=== PATIENT | female | born 1935 | race Caucasian/White ===

== ENCOUNTER 2022-03-28 13:33 | Observation (INO) ==
[2022-03-28 16:24] LABS: Bacteria,Urine Few per hpf (None-Few); Bilirubin,Urine Negative (Negative); Blood,Urine Negative (Negative); Clarity,Urine Turbid (Clear); Color,Urine Yellow (Yellow); Glucose,Urine (UA) Normal (Normal); Hemoglobin 13.2 g/dL (11.5-15.4); Hyaline Casts,Urine Many per lpf (None Seen); Ketones,Urine Negative (Negative); Leukocyte Esterase,Urine Large (Negative); Mucus,Urine Few per lpf (None-Few); Nitrite,Urine Negative (Negative); PH,Urine 5.5 pH Units (5.0-8.0); Protein,Urine Trace mg/dL (Neg-Trace); Renal Epithelial Cells,Urine Few per hpf (None-Few); Specific Gravity,Urine 1.015 (1.010-1.025); Squamous Epithelial Cell,Urine Moderate per hpf (None-Few); Transitional Epi Cells,Urine Few per hpf (None-Few); Urobilinogen,Urine Normal (Normal); WBC,Urine 15-30 per hpf (0-3)
[2022-03-28 16:26] LABS: Basophils % 0.5 %; Eosinophils % 0.5 %; Hematocrit 41.6 % (35.3-44.9); Immature Platelets 5.5 % (1.1-6.1); Lymphocytes # 2.7 K/mcL (0.6-4.6); Lymphocytes % 33.4 %; Mean Corpuscular HGB Conc 31.7 g/dL (31.6-35.5); Mean Corpuscular Hemoglobin 26.9 pg (28.0-33.3); Mean Corpuscular Volume 84.7 fL (83.0-100.0); Mean Platelet Volume 10.6 fL (9.4-12.4); Monocytes % 12.4 %; Neutrophils # 4.2 K/mcL (1.6-8.9); Red Blood Count 4.91 M/mcL (3.82-4.97); Red Cell Distribution Width 15.3 % (11.5-14.5); Segmented Neutrophils % 52.2 %
[2022-03-28 16:27] LABS: Platelet Count 95 K/mcL (140-400)
[2022-03-28] MEDS ORDERED: Iopamidol - 370 500 ML MLS IVP ONE (16:38)
[2022-03-28 16:42] LABS: INR 1.9; Prothrombin Time 21.6 Seconds (9.4-12.1)
[2022-03-28 16:49] LABS: Albumin 3.9 g/dL (3.5-5.7); Albumin/Globulin Ratio 1.3 (1.1-2.2); Bilirubin,Total 1.5 mg/dL (0.3-1.0); Calcium 9.1 mg/dL (8.6-10.3); Globulin 2.9 g/dL (2.4-3.5); Potassium 4.1 mEq/L (3.5-5.1); Total Protein 6.8 g/dL (6.4-8.9); Troponin I 0.03 ng/mL (< 0.04)
[2022-03-28 16:56] LABS: Thyroid Stimulating Hormone 2.729 mcIU/mL (0.340-5.600)
[2022-03-28 17:05] LABS: Bilirubin,Direct 0.4 mg/dL (0.0-0.2); Bilirubin,Indirect 1.1 mg/dL (0.0-1.0)
[2022-03-28] MEDS ORDERED: cefTRIAXone 1,000 MG in 0.9 % Sodium Chloride Mini Bag 100 ML IVPB ONE (18:29)
[2022-03-28] MEDS ORDERED: Naloxone 0.4 MG/ML INJ IVP PRN (20:14)
[2022-03-28] MEDS ORDERED: Ondansetron ODT 4 MG TAB.RAPDIS SL PRN (20:14)
[2022-03-28] MEDS ORDERED: Melatonin 3 MG TABLET PO PRN (20:14)
[2022-03-28] MEDS: Ringers Solution, Lactated 1,000 ML IVC SCH (22:14)
[2022-03-29 01:27] LABS: Hemoglobin 12.8 g/dL (11.5-15.4); Red Cell Distribution Width 15.4 % (11.5-14.5)
[2022-03-29 01:29] LABS: Basophils # 0.1 K/mcL (0.0-0.2); Basophils % 0.7 %; Eosinophils # 0.1 K/mcL (0.0-0.6); Eosinophils % 1.9 %; Hematocrit 40.2 % (35.3-44.9); Immature Granulocytes % 1.9 % (0-4); Immature Platelets 5.4 % (1.1-6.1); Lymphocytes # 1.5 K/mcL (0.6-4.6); Lymphocytes % 21.6 %; Mean Corpuscular HGB Conc 31.8 g/dL (31.6-35.5); Mean Corpuscular Hemoglobin 26.8 pg (28.0-33.3); Mean Corpuscular Volume 84.3 fL (83.0-100.0); Mean Platelet Volume 10.5 fL (9.4-12.4); Monocytes # 0.6 K/mcL (0.0-1.3); Monocytes % 8.5 %; Red Blood Count 4.77 M/mcL (3.82-4.97); Segmented Neutrophils % 65.4 %; White Blood Count 6.8 K/mcL (4.3-11.1)
[2022-03-29 01:33] LABS: Neutrophils # 4.5 K/mcL (1.6-8.9); Platelet Count 91 K/mcL (140-400)
[2022-03-29 01:36] LABS: INR 1.9; Prothrombin Time 21.6 Seconds (9.4-12.1)
[2022-03-29] MEDS: Acetaminophen 325 MG TABLET PO PRN ×2 (01:37→20:04)
[2022-03-29 01:39] LABS: Activated Partial Thrombo Time 40.2 Seconds (26.0-36.0)
[2022-03-29 01:47] LABS: Albumin 3.6 g/dL (3.5-5.7); Albumin/Globulin Ratio 1.3 (1.1-2.2); Calcium 8.9 mg/dL (8.6-10.3); Globulin 2.7 g/dL (2.4-3.5); Magnesium 1.7 mg/dL (1.6-2.6); Phosphorous 2.1 mg/dL (2.7-4.5); Total Protein 6.3 g/dL (6.4-8.9)
[2022-03-29 04:51] LABS: Hepatitis B Surface Antigen Nonreactive (Nonreactive)
[2022-03-29 05:20] LABS: Hepatitis A Antibody IgM Nonreactive (Nonreactive)
[2022-03-29 05:21] LABS: Hepatitis B Core IgM Nonreactive (Nonreactive)
[2022-03-29 05:22] LABS: Hepatitis C Virus Antibody Nonreactive (Nonreactive)
[2022-03-29] MEDS: Cholecalciferol (D-3) 1,000 UNIT (25MCG) TABLET PO SCH (09:38)
[2022-03-29] MEDS: Lactobacillus 1 EACH CAP.SPRINK PO SCH ×2 (09:38→20:05)
[2022-03-29] MEDS: lisinopriL 20 MG TABLET PO SCH (09:39)
[2022-03-29] MEDS: cefTRIAXone 1,000 MG in Water for inj. (sterile) 10 ML IVP SCH (09:41)
[2022-03-29] MEDS: (Mirabegron [Myrbetriq] 25 MG PO SCH (09:42)
[2022-03-29] MEDS: Ringers Solution, Lactated 1,000 ML IVC SCH (14:24)
[2022-03-29] MEDS: Latanoprost 2.5 ML BOTTLE BOTH EYES SCH (20:04)
[2022-03-30 01:54] LABS: Albumin 3.1 g/dL (3.5-5.7); Albumin/Globulin Ratio 1.4 (1.1-2.2); Bilirubin,Total 0.8 mg/dL (0.3-1.0); Calcium 8.8 mg/dL (8.6-10.3); Globulin 2.2 g/dL (2.4-3.5); Phosphorous 3.2 mg/dL (2.7-4.5); Potassium 3.9 mEq/L (3.5-5.1); Total Protein 5.3 g/dL (6.4-8.9)
[2022-03-30] MEDS: Cholecalciferol (D-3) 1,000 UNIT (25MCG) TABLET PO SCH (08:48)
[2022-03-30] MEDS: cefTRIAXone 1,000 MG in Water for inj. (sterile) 10 ML IVP SCH (08:48)
[2022-03-30] MEDS: lisinopriL 20 MG TABLET PO SCH (08:48)
[2022-03-30] MEDS: Lactobacillus 1 EACH CAP.SPRINK PO SCH ×2 (08:48→20:50)
[2022-03-30] MEDS: (Mirabegron [Myrbetriq] 25 MG PO SCH (08:51)
[2022-03-30] MEDS ORDERED: Furosemide 20 MG TABLET PO SCH (10:00)
[2022-03-30] MEDS: Acetaminophen 325 MG TABLET PO PRN (20:49)
[2022-03-30] MEDS: Latanoprost 2.5 ML BOTTLE BOTH EYES SCH (20:50)
[2022-03-31 10:41] VITALS: BP 117/69; PULSE 87; TEMP 99.5; O2SAT 93
[2022-03-31] MEDS: cefTRIAXone 1,000 MG in Water for inj. (sterile) 10 ML IVP SCH (11:22)
[2022-03-31] MEDS: Cholecalciferol (D-3) 1,000 UNIT (25MCG) TABLET PO SCH (11:22)
[2022-03-31] MEDS: Lactobacillus 1 EACH CAP.SPRINK PO SCH (11:22)
[2022-03-31] MEDS: lisinopriL 20 MG TABLET PO SCH (11:22)
[2022-03-31] MEDS: (Mirabegron [Myrbetriq] 25 MG PO SCH (11:23)
== END 2022-03-31 14:17 | disposition home health service (06) ==
LOC: 3ANU 13:33 → EMEROOARM 13:33 → SUATTDRO 20:07 → 3ANU 20:55
PROVIDERS: ADMIT Internal Medicine; ATTEND Internal Medicine